=== PATIENT | female | born 1945 | race Caucasian/White ===

== ENCOUNTER 2016-05-15 10:22 | Emergency (ER) | payer MEDICARE, BC ==
[2016-05-15 10:54] VITALS: RESP 18
--- NOTE | 2016-05-15 11:27 | ED ---
Fall HPI - General Chief Complaint: Fall Stated Complaint: fall, back and head pain, shadi Time Seen by Provider: 05/15/16 10:33 Source: patient Mode of arrival: ambulatory - History of Present Illness Initial Comments: This patient is a 70-year-old woman who complains of having a fall on Tuesday. The patient states that she had gone to check her mail, and did not notice there was some ice on the snow. She slipped and fell. Patient struck the right side of her ribs and also the right side of her head. The patient states that now she is having some pain in the right side of her chest when she moves, or when she sneezes or coughs. She states that the head pain had resolved other is a bit of a bruise over that area. Patient did not have any loss of consciousness. She is not take any blood thinning medication. She has not had any neurologic symptoms. No neck pain. 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 Witnessed: no Place Fall Occurred: home Loss of Consciousness: none Prolonged Down Time?: no Symptoms Prior to Fall: none Location: chest Severity: moderate Quality: aching Context: tripped/slipped - Related Data Home Medications Medication Instructions Recorded Confirmed Levothyroxine Sodium [Synthroid] 50 mcg PO DAILY 05/15/16 05/15/16 Levothyroxine Sodium [Synthroid] 88 mcg PO DAILY 05/15/16 05/15/16 Ramipril [Altace] 2.5 mg PO BID 05/15/16 05/15/16 amLODIPine [Norvasc] 5 mg PO HS 05/15/16 05/15/16 Allergies Allergy/AdvReac Type Severity Reaction Status Date / Time No Known Allergies Allergy Verified 05/15/16 10:45 Review of Systems ROS Statement: Those systems with pertinent positive or pertinent negative responses have been documented in the HPI. ROS Other: All systems not noted in ROS Statement are negative. Constitutional: Denies: fever, chills Respiratory: Denies: cough, dyspnea, hemoptysis Cardiovascular: Reports: as per HPI, chest pain. Denies: palpitations, syncope Gastrointestinal: Denies: abdominal pain, vomiting, diarrhea Genitourinary: Denies: dysuria Musculoskeletal: Denies: back pain Skin: Denies: rash Neurological: Denies: headache, weakness, numbness Past Medical History Past Medical History: Hypertension, Thyroid Disorder History of Any Multi-Drug Resistant Organisms: None Reported Additional Past Surgical History / Comment(s): Lasix Past Psychological History: No Psychological Hx Reported Smoking Status: Never smoker Past Alcohol Use History: Rare Past Drug Use History: None Reported General Exam Limitations: no limitations General appearance: alert, in no apparent distress Head exam: Present: atraumatic, other (Right parietal hematoma. There is only a trace of tenderness. There is no bony tenderness. No palpable deformity.) Eye exam: Present: normal appearance, PERRL, EOMI. Absent: scleral icterus, conjunctival injection, nystagmus ENT exam: Present: normal oropharynx, TM's normal bilaterally Neck exam: Present: normal inspection, full ROM. Absent: tenderness, meningismus Respiratory exam: Present: normal lung sounds bilaterally, chest wall tenderness. Absent: respiratory distress, wheezes, rales, rhonchi, stridor Cardiovascular Exam: Present: regular rate, normal rhythm, normal heart sounds. Absent: systolic murmur, diastolic murmur, rubs, gallop GI/Abdominal exam: Present: soft. Absent: distended, tenderness, guarding, rebound, rigid, mass Extremities exam: Present: normal inspection, normal capillary refill. Absent: pedal edema, calf tenderness Back exam: Present: normal inspection. Absent: CVA tenderness (R), CVA tenderness (L) Neurological exam: Present: alert, oriented X3, CN II-XII intact, normal gait. Absent: motor sensory deficit Skin exam: Present: warm, dry, intact, normal color. Absent: rash Course Vital Signs 05/15/16 05/15/16 10:39 10:51 Temperature 96.9 F L Pulse Rate 60 Respiratory 20 18 Rate Blood Pressure 154/67 O2 Sat by Pulse 98 Oximetry Disposition Clinical Impression: Fall, Chest wall injury Disposition: HOME SELF-CARE Condition: Good Instructions: Fall Prevention for Older Adults (ED), Rib Fracture (ED) Referrals: George Campoverde MD [Primary Care Provider] - 1-2 days
--- NOTE | 2016-05-15 11:34 | XR ---
EXAMINATION TYPE: XR ribs RT w pa chest xray DATE OF EXAM: 05/15/2016 11:16 AM CLINICAL HISTORY: Fall injury 3 days ago with chest and right-sided rib pain. TECHNIQUE: Single frontal view of the chest is obtained. A frontal and oblique images of the right-si ded ribs are acquired. COMPARISON: None FINDINGS: There is no focal air space opacity, pleural effusion, or pneumothorax seen. Underlying em physematous change is not excluded. The cardiac silhouette size is within normal limits. The osseou s structures are demineralized which is noted to lower radiographic sensitivity. Dedicated images of the right-sided ribs show no acute displaced fracture. Overlying soft tissue is u nremarkable. IMPRESSION: 1. No acute cardiopulmonary process. 2. No acute displaced right-sided rib fractures are clearly seen. Slightly suboptimal evaluation due to demineralization is noted.
[2016-05-15 12:21] VITALS: BP 127/58; PULSE 53; TEMP 97
== END 2016-05-15 12:25 | disposition home or self-care (01) ==
LOC: EC 10:22
DX: S29.9XXA Unspecified injury of thorax, initial encounter (principal); W00.0XXA Fall on same level due to ice and snow, initial encounter; E07.9 Disorder of thyroid, unspecified; I10 Essential (primary) hypertension; Z79.899 Other long term (current) drug therapy
CPT/HCPCS: 99283

== ENCOUNTER → 2019-01-02 | Outpatient (CLI) | payer MEDICARE, BC ==
--- NOTE | 2019-01-03 12:00 | ECHOF ---
Referral Reason:R01.1 Cardiac murmur, unspecified MEASUREMENTS -------- HEIGHT: 167.6 cm WEIGHT: 57.2 kg BP: 137/65 RVIDd: 3.1 cm (< 3.3) IVSd: 1.1 cm (0.6 - 1.1) LVIDd: 4.0 cm (3.9 - 5.3) LVPWd: 1.0 cm (0.6 - 1.1) IVSs: 1.4 cm LVIDs: 2.7 cm LVPWs: 1.4 cm LA Diam: 2.9 cm (2.7 - 3.8) LAESV Index (A-L): 28.83 ml/m Ao Diam: 3.0 cm (2.0 - 3.7) AV Cusp: 1.5 cm (1.5 - 2.6) MV EXCURSION: 16.139 mm (> 18.000) MV EF SLOPE: 69 mm/s (70 - 150) EPSS: 0.2 cm MV E Liban: 0.70 m/s MV DecT: 293 ms MV A Liban: 0.73 m/s MV E/A Ratio: 0.95 RAP: 5.00 mmHg RVSP: 23.72 mmHg TAPSE: 20.82 mm FINDINGS -------- Resting bradycardia (HR<60bpm). This was a technically good study. The left ventricular size is normal. There is borderline concentric left ventricular hypertrophy. Overall left ventricular systolic function is normal with, an EF between 55 - 60 %. The diastolic filling pattern is normal for the age of the patient 13.76. The right ventricle is normal in size. LA is midly dilated 29-33ml/m2. The right atrium is normal in size. Interatrial and interventricular septum intact. There is mild aortic valve sclerosis. The mitral valve is normal. Mild tricuspid regurgitation present. Right ventricular systolic pressure is normal at < 35 mmHg. Trace/mild (physiologic) pulmonic regurgitation. The aortic root size is normal. Normal inferior vena cava with normal inspiratory collapse consistent with estimated right atrial pre ssure of 5 mmHg. There is no pericardial effusion. CONCLUSIONS -------- 1. Resting bradycardia (HR<60bpm). 2. This was a technically good study. 3. The left ventricular size is normal. 4. There is borderline concentric left ventricular hypertrophy. 5. Overall left ventricular systolic function is normal with, an EF between 55 - 60 %. 6. The diastolic filling pattern is normal for the age of the patient 13.76 7. The right ventricle is normal in size. 8. LA is midly dilated 29-33ml/m2. 9. The right atrium is normal in size. 10. Interatrial and interventricular septum intact. 11. There is mild aortic valve sclerosis. 12. The mitral valve is normal. 13. Mild tricuspid regurgitation present. 14. Right ventricular systolic pressure is normal at < 35 mmHg. 15. Trace/mild (physiologic) pulmonic regurgitation. 16. The aortic root size is normal. 17. Normal inferior vena cava with normal inspiratory collapse consistent with estimated right atrial pressure of 5 mmHg. 18. There is no pericardial effusion. BUGGY LOADER: Nayely Raza RDCS
== END | disposition home or self-care (01) ==
LOC: RADECHMAIN 11:13
PROVIDERS: ATTEND Family Medicine
DX: I07.1 Rheumatic tricuspid insufficiency (principal); I35.8 Other nonrheumatic aortic valve disorders; I37.1 Nonrheumatic pulmonary valve insufficiency; R00.1 Bradycardia, unspecified
CPT/HCPCS: 93306

== ENCOUNTER → 2019-01-10 | Outpatient (CLI) | payer MEDICARE, BC ==
[~2019-01-10] MED LIST: DENOSUMAB 60 MG/ML 1 ML SYRINGE SQ ONE
[2019-01-10 09:59] VITALS: BP 159/69; PULSE 58; RESP 16; TEMP 97.7
== END ==
LOC: PROCWHC3 09:29
PROVIDERS: ATTEND Family Medicine
DX: M81.0 Age-related osteoporosis without current pathological fracture (principal)
CPT/HCPCS: 96372; J0897

== ENCOUNTER → 2019-07-13 | Outpatient (CLI) | payer BC, MEDICARE ==
[~2019-07-13] MED LIST changes: +DENOSUMAB 60 MG/ML 1 ML SYRINGE SQ NR; -DENOSUMAB 60 MG/ML 1 ML SYRINGE SQ ONE
[2019-07-13 09:59] VITALS: BP 157/70; PULSE 56; RESP 16; TEMP 97.7
== END | disposition home or self-care (01) ==
LOC: PROCWHC3 09:24
PROVIDERS: ATTEND Family Medicine
DX: M81.0 Age-related osteoporosis without current pathological fracture (principal)
CPT/HCPCS: 96372; J0897

== ENCOUNTER → 2020-01-16 | Outpatient (CLI) | payer MEDICARE ==
[2020-01-16 09:04] VITALS: BP 155/64; PULSE 66; RESP 15; TEMP 98.1
== END | disposition home or self-care (01) ==
LOC: PROCWHC3 08:47
PROVIDERS: ATTEND Family Medicine
DX: M81.0 Age-related osteoporosis without current pathological fracture (principal)
CPT/HCPCS: 96372; J0897

== ENCOUNTER → 2021-07-30 | Outpatient (CLI) | payer MEDICARE ==
[2021-07-30 08:55] VITALS: BP 158/78; PULSE 65; RESP 16; TEMP 97.6
== END ==
LOC: PROCWHC3 08:44
PROVIDERS: ATTEND Family Medicine
DX: M81.0 Age-related osteoporosis without current pathological fracture (principal)
CPT/HCPCS: 96372; J0897

== ENCOUNTER → 2021-12-10 | Outpatient (CLI) | payer MEDICARE ==
--- NOTE | 2021-12-10 11:18 | FL ---
EXAMINATION TYPE: FL barium swallow DATE OF EXAM: 12/10/2021 CLINICAL HISTORY: Dysphasia. Food getting intermittently stuck in cervical esophagus for months. TECHNIQUE: A double contrast esophagram is performed utilizing air and barium. A total of 19 second s of fluoroscopic time was utilized during procedure and 53 images obtained COMPARISON: None FINDINGS: The esophagus shows normal motility and emptying into the stomach. No proximal diverticulum . No obstructing mass identified. No evidence of fixed hiatal hernia or stricture noted. No significa nt gastroesophageal reflux was seen during real time performance of this study. IMPRESSION: No significant abnormality is seen to account for patient's symptoms of dysphagia.
--- NOTE | 2021-12-10 11:19 | US ---
EXAMINATION TYPE: US carotid duplex BILAT DATE OF EXAM: 12/10/2021 COMPARISON: NONE CLINICAL HISTORY: I65.23 OCCLUSION AND STENOSIS R13.12 DYSPHAGIA. TECHNIQUE: Carotid duplex ultrasound examination. Indirect Doppler criteria was utilized. 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 No elevated velocities or significant stenosis. Moderate peripheral shadowing hyperechoic plaque right carotid bulb and mild to moderate peripheral p laque left carotid bulb. Velocity measurements and ratios remain within normal limits. IMPRESSION: No hemodynamically significant stenosis in either internal carotid artery. Criteria for Assigning % of Stenosis / Diameter reduction (Estimation based on the indirect measurements of the internal carotid artery velocities (ICA PSV). 1. Normal (no stenosis)=ICA PSV < 125 cm/s: ratio < 2.0: ICA EDV<40 cm/s. 2. Less than 50% stenosis=ICA PSV < 125 cm/s: ratio < 2.0: ICA EDV<40 cm/s. 3. 50 to 69% stenosis=ICA PSV of 125 to 230 cm/s: ration 2.0 ? 4.0: ICA EDV 40-100 cm/s. 4. Greater than 70% stenosis to near occlusion= ICA PSV > 230 cm/s: ratio > 4.0: ICA EDV > 100 cm/s. 5. Near occlusion= ICA PSV velocities may be low or undetectable: variable ratio and ICA EDV. 6. Total occlusion=unable to detect flow.
--- NOTE | 2021-12-14 15:37 | MM ---
Reason for Exam: Screening (asymptomatic). Last mammogram was performed 17 year(s) and 4 month(s) ago. Patient History: Menarche at age 11. First Full-Term at age 24. Postmenopausal. Risk Values: Aria 5 year model risk: 1.9%. NCI Lifetime model risk: 3.7%. Prior Study Comparison: 04/10/1999 Left Special View Mammogram, [facility]. 04/11/2001 Bilateral Special View Mammogram, [facility]. 08/12/2004 Bilateral Screening Mammogram, [facility]. Tissue Density: The breast tissue is extremely dense which could obscure a lesion on mammography. Findings: Analyzed By CAD. No suspicious groups of microcalcifications, spiculated or lobular masses, architectural distortion or other secondary signs of malignancy are mammographically apparent. Overall Assessment: Benign, BI-RAD 2 Management: Screening Mammogram of both breasts in 1 year. A negative mammogram report should not preclude additional follow up of suspicious palpable abnormalities. Patient should continue monthly self breast exam. A clinical breast exam by your physician is recommended on an annual basis and results should be correlated with mammographic findings. Electronically signed and approved by: Arley Wells DO
== END | disposition home or self-care (01) ==
LOC: RADUSWWP 09:53
PROVIDERS: ATTEND Internal Medicine
DX: Z12.31 Encounter for screening mammogram for malignant neoplasm of breast (principal); R13.10 Dysphagia, unspecified; I65.23 Occlusion and stenosis of bilateral carotid arteries; Z78.0 Asymptomatic menopausal state
CPT/HCPCS: 74220; 77063; 77067; 93880

== ENCOUNTER → 2021-12-11 | Outpatient (CLI) | payer MEDICARE ==
[2021-12-11 11:20] LABS: ALT 16 U/L (8-44); AST 24 U/L (13-35); African American GFR (CKD) 96.9 (60.0-200.0); Albumin 4.3 g/dL (3.8-4.9); Albumin/Globulin Ratio 2.26 (1.60-3.17); Alkaline Phosphatase 47 U/L (41-126); Blood Urea Nitrogen 14.7 mg/dL (9.0-27.0); Calcium 8.5 mg/dL (8.7-10.3); Carbon Dioxide 27.6 mmol/L (20.0-27.5); Chloride 102 mmol/L (96-109); Globulin 1.9 g/dL (1.6-3.3); Glucose 86 mg/dL (70-110); Magnesium 2.2 mg/dL (1.5-2.4); Non-African American GFR(CKD) 83.6 (60.0-200.0); Sodium 139 mmol/L (135-145); Total Protein 6.2 g/dL (6.2-8.2)
[2021-12-11 11:50] LABS: Protein, Total 6.5 g/dL (6.2-8.2)
[2021-12-11 12:09] LABS: C Reactive Protein <0.30 mg/dL (0.00-0.80); Ferritin 89.5 ng/mL (10.0-291.0); Iron 65 ug/dL (50-170); Total Iron Binding Capacity 297 ug/dL (228-460)
[2021-12-11 13:20] LABS: Chol/HDL Ratio 2.39 Ratio; LDL Cholesterol,Calculated 99.4 mg/dL (0.0-131.0); Rheumatoid Factor, Qnt <10 IU/mL (0-15); VLDL Calculation 18.16 mg/dL (5.00-40.00)
[2021-12-11 14:49] LABS: Basophils # (A) 0.07 X 10*3/uL (0.00-0.10); Basophils % (A) 1.7 %; Eosinophils # (A) 0.14 X 10*3/uL (0.04-0.35); Eosinophils % (A) 3.4 %; HCT 38.5 % (37.2-46.3); HGB 12.9 g/dL (12.0-15.0); Immature Grans, Automated 0.2 %; Lymphocytes # (A) 1.19 X 10*3/uL (0.90-5.00); MCH 29.9 pg (27.0-32.0); MCHC 33.5 g/dL (32.0-37.0); MCV 89.1 fL (80.0-97.0); Mean Platelet Volume 10.7 fL (9.5-12.2); Monocytes # (A) 0.47 X 10*3/uL (0.20-1.00); Monocytes % (A) 11.5 %; NRBC Per 100 WBC 0 /100 WBCS (0.0-0.0); Neutrophils # (A) 2.22 X 10*3/uL (1.80-7.70); Neutrophils % (A) 54.2 %; Platelet Count 242 X 10*3/uL (140-440); RBC 4.32 X 10*6/uL (4.10-5.20); RDW 12.5 % (11.5-14.5)
[2021-12-11 15:07] LABS: Erythrocyte Sedimentation Rate 1 mm/Hr (0-30)
[2021-12-11 16:06] LABS: Appearance,Urine Clear (Clear); Bilirubin,Urine Negative (Negative); Blood,Urine Large (Negative); Color,Urine Yellow (Yellow); Ketones,Urine Negative (Negative); Nitrite,Urine Negative (Negative); Specific Gravity,Urine 1.012 (1.001-1.030)
[2021-12-11 16:18] LABS: Bacteria,Urine None Seen /HPF (None Seen)
== END | disposition home or self-care (01) ==
LOC: LABWHC1 06:52
PROVIDERS: ATTEND Internal Medicine
DX: I10 Essential (primary) hypertension (principal); E03.9 Hypothyroidism, unspecified; E78.2 Mixed hyperlipidemia; E55.9 Vitamin D deficiency, unspecified; G62.9 Polyneuropathy, unspecified; M81.0 Age-related osteoporosis without current pathological fracture
CPT/HCPCS: 36415; 80053; 80061; 81001; 82306; 82523; 82595; 82607; 82728; 83036; 83540; 83550; 83735; 83883; 84165; 84439; 84443; 85025; 85652; 86038; 86140; 86431; 86800

== ENCOUNTER → 2022-02-02 | Outpatient (CLI) | payer MEDICARE ==
[2022-02-02 08:58] VITALS: RESP 16; TEMP 98
[2022-02-02 09:01] VITALS: BP 137/62; PULSE 57
== END ==
LOC: PROCWHC3 08:45
PROVIDERS: ATTEND Internal Medicine
DX: M81.0 Age-related osteoporosis without current pathological fracture (principal)
CPT/HCPCS: 96372; J0897

== ENCOUNTER → 2022-09-01 | Outpatient (CLI) | payer MEDICARE ==
--- NOTE | 2022-09-01 12:33 | XR ---
EXAMINATION TYPE: XR shoulder complete BILAT DATE OF EXAM: 09/01/2022 12:25 PM INDICATION: Patient age:Female; 77 years old; Reason for study: M25.519; COMPARISON: None TECHNIQUE: Both shoulders are examined in frontal, external rotation, and scapular Y-view projections . FINDINGS: No evidence of acute osseous pathology, joint dislocation, or soft tissue swelling. Mild bilateral AC joint arthropathy with joint space narrowing. The remaining portions of the visualized chest are unr emarkable. IMPRESSION: 1. No acute osseous pathology. 2. Mild bilateral AC joint arthropathy.
== END | disposition home or self-care (01) ==
LOC: RADXRMAIN 11:58
PROVIDERS: ATTEND Internal Medicine
DX: M19.012 Primary osteoarthritis, left shoulder (principal); M19.011 Primary osteoarthritis, right shoulder

== ENCOUNTER → 2022-09-22 | Outpatient (CLI) | payer MEDICARE ==
[2022-09-22 11:47] VITALS: BP 153/63; PULSE 54; RESP 16; TEMP 97.8
== END ==
LOC: PROCWHC3 11:31
PROVIDERS: ATTEND Internal Medicine
DX: M81.0 Age-related osteoporosis without current pathological fracture (principal)
CPT/HCPCS: 96372; J0897

== ENCOUNTER → 2022-12-07 | Outpatient (CLI) | payer MEDICARE ==
--- NOTE | 2022-12-07 18:45 | BD ---
EXAMINATION TYPE: Axial Bone Density DATE OF EXAM: 12/07/2022 CLINICAL HISTORY: 77 years old Female. ICD-10 CODE: M81.0 AGE-RELATED OSTEOPOROSIS Height: 66 Weight: 122.7 FRAX RISK QUESTIONS: Alcohol (3 or more units per day): no Family History (Parent hip fracture): no Glucocorticoids (More than 3mos): no (Ex: prednisone, prednisolone, methylprednisolone, dexamethasone, and hydrocortisone). History of Fracture in Adulthood: no Secondary Osteoporosis: 1. Type 1 Diabetes: no 2. Hyperthyroidism: no 3. Menopause before 45: no 4. Malnutrition: no 5. Chronic liver disease: no Rheumatoid Arthritis: no Current Tobacco Use: no RISK FACTORS HISTORY OF: Surgery to Spine/Hip(right/left)/Wrist (right/left): no Family History of Osteoporosis: no Active: yes Diet low in dairy products/other sources of calcium: no Postmenopausal woman: yes Lost more than 2 inches in height since high school: no MEDICATIONS: Thyroid Medications: synthroid How Lon years Osteoporosis Medications: prolia How Lon Additional Medications: Additional History: EXAM MEASUREMENTS: Bone mineral densitometry was performed using the [employer] System. Bone mineral density as measured about the Lumbar spine is: ----- L1-L4(G/cm2): 1.039 T Score Values are as follows: ----- L1: -2.4 ----- L2: -1.6 ----- L3: -0.9 ----- L4: -0.1 ----- L1-L4: -1.2 Z Score Values are as follows: ----- L1: -0.3 ----- L2: 0.5 ----- L3: 1.2 ----- L4: 2.0 ----- L1-L4: 0.9 Bone mineral density : baseline Bone mineral density about the R hip (g/cm2): 0.803 Bone mineral density about the L hip (g/cm2): 0.760 T Score values are as follows: -----R Neck: -2.2 -----L Neck: -2.6 -----R Total: -1.6 -----L Total: -2.0 Z Score values are as follows: -----R Neck: 0.1 -----L Neck: -0.4 -----R Total: 0.5 -----L Total: 0.2 Bone mineral density : baseline FRAX%s: The graph provided illustrates a 17.1% chance for a major osteoporotic fx and a 6.5% chance f or the hips probability for fx in 10 years time. IMPRESSION: Osteoporosis (T Score less than -2.5). There is increased fracture risk and therapy is usually indicated based on age. Re-Screen 1-2 years. NOTE: T-SCORE=SD OF THE YOUNG ADULT MEAN.
== END | disposition home or self-care (01) ==
LOC: RADBDWWP 12:58
PROVIDERS: ATTEND Internal Medicine
DX: M81.0 Age-related osteoporosis without current pathological fracture (principal); M85.89 Other specified disorders of bone density and structure, multiple sites
CPT/HCPCS: 77080

== ENCOUNTER 2022-12-08 06:06 | Day surgery (SDC) | payer MEDICARE, OTHER ==
[2022-12-07 10:04] VITALS: BMI 19.7
[~2022-12-08 06:06] MED LIST changes: -DENOSUMAB 60 MG/ML 1 ML SYRINGE SQ NR; +LACTATED RINGERS 1,000 ML IV SCH; +LIDOCAINE 1% (10MG/ML) FOR IV START INTRADERMA PRN; +MOXIFLOXACIN HCL 0.5% DROPS 3 ML BTL OP PRN; +TETRACAINE 0.5% OPHTH (PF) DROPS 4 ML BTL OP PRN; +TIMOLOL 0.5% OPHTH DROPS 5 ML BTL OP PRN
[2022-12-08 06:53] VITALS: TEMP 97
[2022-12-08] MEDS: CYCLOPENTOLATE 1% OPHTH SOLN 2 ML BTL OP PRN ×3 (06:59→07:11)
[2022-12-08] MEDS: PHENYLEPHRINE 2.5% OPHTH DRP 2ML OP PRN ×3 (07:02→07:14)
[2022-12-08] MEDS ORDERED: ONDANSETRON 4 MG/2 ML VIAL ONE (07:07)
[2022-12-08] MEDS ORDERED: ONDANSETRON 4 MG/2 ML VIAL IVP ONE (07:10)
[2022-12-08] MEDS ORDERED: GLYCOPYRROLATE 0.2 MG/ML 2 ML VIAL ONE (07:30)
[2022-12-08] MEDS ORDERED: MIDAZOLAM 2 MG/2 ML VIAL ONE (07:30)
[2022-12-08] MEDS ORDERED: fentaNYL (PF) 50 MCG/ML 2 ML AMP ONE (07:30)
[2022-12-08] MEDS ORDERED: EPINEPHrine (PF) 0.3 ML in BALANCED SALT IRRIG SOLN COMB2 500 ML IRRIGATION ONE (07:44)
[2022-12-08] MEDS ORDERED: BALANCED SALT IRRIG SOLN COMB2 15 ML IRRIG.SOLN INTRAOCULA ONE (07:45)
[2022-12-08] MEDS ORDERED: DUOVISC KIT (GREEN BOX) INTRAOCULA ONE (07:45)
[2022-12-08] MEDS ORDERED: LIDOCAINE 1% (PF) 10MG/ML VIAL MISCELLANE ONE (07:45)
--- NOTE | 2022-12-08 08:12 | P.OP ---
Date of Procedure: 12/08/22 Preoperative Diagnosis: NS Postoperative Diagnosis: NS Procedure(s) Performed: PIOL< OS Implants: [id number] 24.50 Anesthesia: MAC Surgeon: Pastor Morse Pathology: none sent Condition: stable Disposition: same day Indications for Procedure: blurry vision Operative Findings: no complications
[2022-12-08 08:31] VITALS: BP 122/60; PULSE 63; RESP 16
--- NOTE | 2022-12-09 09:52 | OP ---
OPERATIVE REPORT DATE OF SERVICE : 12/08/2022 PREOPERATIVE DIAGNOSES:: 1. Nuclear sclerosis. 2. Cortical sclerosis. 3. Regular astigmatism. POSTOPERATIVE DIAGNOSES:: 1. Nuclear sclerosis. 2. Cortical sclerosis. 3. Regular astigmatism. OPERATION:: Phacoemulsification of cataract and intraocular lens implant of the left eye. ESTIMATED BLOOD LOSS:: None. SPECIMEN TAKEN:: None. ANESTHESIA: Topical. NARRATIVE:: After obtaining the appropriate consent, the patient was brought to the operating room where she was placed under cardiac monitoring, prepped and draped in the usual sterile manner. She was approached from her left temporal side. Using previously acquired corneal topography information, the axis of 175 degrees was identified and marked with a [employer] axis marker. At the 5 o'clock position, an MVR blade was used to create a paracentesis port. Through this opening, 1% Xylocaine MPF 50:50 mix of balanced salt solution was injected into the anterior chamber. This was followed by stabilization of the anterior chamber with Amvisc. At the 3 o'clock position, a 2.5 mm keratome was used to create a self-sealing corneal flap incision. Through this opening, a cystotome was introduced to begin a continuous tear capsulorrhexis which was then completed using the Utrata forceps. Hydrodissection and hydrodelineation of the lens were accomplished with balanced salt solution. Phacoemulsification of the lens utilizing phaco chop was accomplished in 12.41 seconds at 9.4% power. Additional Xylocaine MPF was instilled into the anterior chamber. This was followed by removal of the remaining cortical material under irrigation and aspiration as well as careful polishing of the posterior capsule in the capsule vacuum mode. Additional Amvisc was then used to stabilize the capsular bag and a Bausch [employer] Lomb [id number] 24.5 spherical equivalent posterior chamber intraocular lens was then inserted into the capsular bag without difficulty. The remaining viscoelastic was removed from in and around the intraocular lens and the lens was then oriented with respect to the corneal perez previously placed on the patient's cornea. The eye was then brought to normal intraocular pressure through the paracentesis port with balanced salt solution. She received 2 drops of 0.5% timolol followed by 2 drops of 0.5% moxifloxacin and was then lightly patched and shielded in the usual manner. There were no complications from the procedure. She tolerated the procedure well and was returned to outpatient recovery in good condition. MMBENNIE / STEPHANN: [id number] /
== END 2022-12-08 08:55 | disposition home or self-care (01) ==
LOC: OR 06:06
PROVIDERS: ATTEND Ophthalmology
DX: H25.12 Age-related nuclear cataract, left eye (principal); H52.222 Regular astigmatism, left eye; I10 Essential (primary) hypertension; E07.9 Disorder of thyroid, unspecified; E78.5 Hyperlipidemia, unspecified; Z79.899 Other long term (current) drug therapy
CPT/HCPCS: 66984; V2787; C1780; C1762; J2250; J2405; J0171; J3010; J2001

== ENCOUNTER → 2023-01-19 | Day surgery (SDC) | payer MEDICARE, OTHER ==
[~2023-01-19] MED LIST changes: +BALANCED SALT IRRIG SOLN COMB2 15 ML IRRIG.SOLN INTRAOCULA ONE; +DEXAMETHASONE SOD PHOSPHATE 4 MG/ML 1 ML VIAL IVP ONE; +EPINEPHrine (PF) 0.3 ML in BALANCED SALT IRRIG SOLN COMB2 500 ML IRRIGATION ONE; +HYALURONATE SODIUM INTRAOCULAR 1 EACH SYRINGE (12MG/ML) INTRAOCULA ONE; -LIDOCAINE 1% (10MG/ML) FOR IV START INTRADERMA PRN; +LIDOCAINE 1% (PF) 10MG/ML VIAL MISCELLANE ONE; +MIDAZOLAM 2 MG/2 ML VIAL ONE; +ONDANSETRON 4 MG/2 ML VIAL IVP ONE; +ONDANSETRON 4 MG/2 ML VIAL ONE; +fentaNYL (PF) 50 MCG/ML 2 ML AMP ONE
[2023-01-19] MEDS: CYCLOPENTOLATE 1% OPHTH SOLN 2 ML BTL OP PRN ×3 (08:03→08:15)
[2023-01-19] MEDS: PHENYLEPHRINE 2.5% OPHTH DRP 2ML OP PRN ×3 (08:06→08:18)
[2023-01-19 08:23] VITALS: TEMP 97.3
--- NOTE | 2023-01-19 10:26 | P.OP ---
Date of Procedure: 01/19/23 Preoperative Diagnosis: NS Postoperative Diagnosis: same Procedure(s) Performed: PIOL, OD Implants: [id number] 21.50 Anesthesia: MAC Surgeon: Pastor Morse Pathology: none sent Condition: stable Disposition: same day Indications for Procedure: blurry vision Operative Findings: no complications
[2023-01-19 10:43] VITALS: RESP 12
[2023-01-19 11:03] VITALS: BP 126/69; PULSE 56
--- NOTE | 2023-01-19 19:08 | OP ---
OPERATIVE REPORT DATE OF SERVICE : 01/19/2023 PREOPERATIVE DIAGNOSIS: Nuclear sclerosis, right eye. POSTOPERATIVE DIAGNOSIS: Nuclear sclerosis, right eye. OPERATION: Phacoemulsification of cataract and interocular lens implant, right eye. ESTIMATED BLOOD LOSS: Zero. SPECIMEN TAKEN: None. NARRATIVE: After obtaining the appropriate consent, the patient was brought to the operating room where the patient was placed under cardiac monitoring and prepped and draped in the usual sterile manner. At the 11 o'clock position, a 15-degree super sharp blade was used to create a paracentesis followed by instillation of 1% Xylocaine MPF 50:50 mix with BSS into the anterior chamber. This was followed by Amvisc viscoelastic to stabilize the anterior chamber. At the 9 o'clock position a self-sealing corneal flap incision was created using 2.8 mm lux keratome. A cystotome was used to initiate a continuous tear capsulorrhexis which was completed with the Utrata forceps. A Binkhorst cannula was used to hydrodissect the lens nucleus followed by hydrodelineation. Phacoemulsification of the lens was performed utilizing phaco chop in 15.53 seconds at 10.5% power. The remaining cortical material was removed using the irrigation aspiration mode followed by additional 1% Xylocaine MPF into the anterior chamber followed by viscoelastic to stabilize the capsular bag. A Bausch and Lomb MX60E 21.5 diopter posterior chamber lens was placed into the capsular bag without difficulty. The remaining viscoelastic material was removed from the anterior chamber with the irrigation/aspiration. Balanced salt solution was used to normalize the intraocular pressure. The incision was checked for watertight integrity. The patient then received 2 drops of 0.5% timolol followed by 2 drops Vigamox, was lightly patched and shielded in the usual manner. There were no complications from the procedure. The patient tolerated the procedure well and was returned to recovery in good condition. MMODL / IJN: [id number] /
== END ==
LOC: OR 07:28
PROVIDERS: ATTEND Ophthalmology
DX: H25.11 Age-related nuclear cataract, right eye (principal); H35.3121 Nonexudative age-related macular degeneration, left eye, early dry stage; H52.223 Regular astigmatism, bilateral; H52.13 Myopia, bilateral; E78.5 Hyperlipidemia, unspecified; E03.9 Hypothyroidism, unspecified; I10 Essential (primary) hypertension; M19.90 Unspecified osteoarthritis, unspecified site; Z79.890 Hormone replacement therapy; Z79.899 Other long term (current) drug therapy; Z96.1 Presence of intraocular lens
CPT/HCPCS: 66984; C1780; J2250; J1100; J2405; J0171; J3010; J2001

== ENCOUNTER → 2023-03-25 | Outpatient (CLI) | payer MEDICARE, OTHER ==
[~2023-03-25] MED LIST changes: -BALANCED SALT IRRIG SOLN COMB2 15 ML IRRIG.SOLN INTRAOCULA ONE; +DENOSUMAB 60 MG/ML 1 ML SYRINGE SQ NR; -DEXAMETHASONE SOD PHOSPHATE 4 MG/ML 1 ML VIAL IVP ONE; -EPINEPHrine (PF) 0.3 ML in BALANCED SALT IRRIG SOLN COMB2 500 ML IRRIGATION ONE; -HYALURONATE SODIUM INTRAOCULAR 1 EACH SYRINGE (12MG/ML) INTRAOCULA ONE; -LACTATED RINGERS 1,000 ML IV SCH; -LIDOCAINE 1% (PF) 10MG/ML VIAL MISCELLANE ONE; -MIDAZOLAM 2 MG/2 ML VIAL ONE; -MOXIFLOXACIN HCL 0.5% DROPS 3 ML BTL OP PRN; -ONDANSETRON 4 MG/2 ML VIAL IVP ONE; -ONDANSETRON 4 MG/2 ML VIAL ONE; -TETRACAINE 0.5% OPHTH (PF) DROPS 4 ML BTL OP PRN; -TIMOLOL 0.5% OPHTH DROPS 5 ML BTL OP PRN; -fentaNYL (PF) 50 MCG/ML 2 ML AMP ONE
[2023-03-25 13:34] VITALS: BP 161/64; PULSE 55; RESP 16; TEMP 97.5
== END ==
LOC: PROCWHC3 12:47
PROVIDERS: ATTEND Internal Medicine
DX: M81.0 Age-related osteoporosis without current pathological fracture (principal)
CPT/HCPCS: 96372; J0897

== ENCOUNTER → 2023-07-06 | Outpatient (CLI) | payer MEDICARE ==
[2023-07-06 09:00] LABS: African American GFR (CKD) >90 (>60 ml/min/1.73 sqM); Blood Urea Nitrogen 17 mg/dL (7-17); Non-African American GFR(CKD) 85 (>60 ml/min/1.73 sqM)
--- NOTE | 2023-07-07 07:45 | CT ---
EXAMINATION TYPE: CT urogram wo/w con DATE OF EXAM: 07/06/2023 COMPARISON: None HISTORY: hematuria CT DLP: 1491 mGycm CONTRAST: Performed and with IV Contrast, patient injected with 100 mL of Isovue 300. CT Urography was performed with unenhanced followed by enhanced images of the kidneys, ureters and ur inary bladder. Delayed images were obtained. 3d reconstruction was perfromed at a separate work sta tion. FINDINGS: KIDNEYS/BLADDER: No hydronephrosis. Nonobstructing nephrolithiasis lower pole right kidney with 2 ca lculi seen measuring 6.4 mm and 5 mm respectively. No distinct renal mass. Urinary bladder grossly un remarkable. Extrarenal pelvis noted bilaterally. LUNG BASES-: No visible nodule. No infiltrate. LIVER/GB: No calcified gallstones. No space occupying hepatic lesion. Biliary tree is of normal ca liber. PANCREAS: No inflammation. No distinct mass. SPLEEN: No splenic enlargement. No lesion seen. ADRENALS: No nodule. No thickening. BOWEL: Normal appendix. Normal bowel caliber. No inflammation. GENITAL ORGANS: Hysterectomy changes noted. LYMPH NODES: No greater than 1cm abdominal or pelvic lymph nodes are appreciated. AORTA: No significant abnormality. OSSEOUS STRUCTURES: No significant abnormality is seen. OTHER: No significant additional abnormality is seen. IMPRESSION: 1. Nonobstructive nephrolithiasis right kidney. No renal mass is detected.
== END | disposition home or self-care (01) ==
LOC: RADCTMAIN 08:20
PROVIDERS: ATTEND Internal Medicine
DX: N20.0 Calculus of kidney (principal); R31.29 Other microscopic hematuria
CPT/HCPCS: 82565; 84520; 74178; 74400; Q9967

== ENCOUNTER → 2023-07-14 | Outpatient (CLI) | payer MEDICARE ==
--- NOTE | 2023-07-14 14:32 | US ---
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 Indirect Doppler criteria was utilized. 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 no elevated velocities or ratios. No stenosis seen. IMPRESSION: 1. Mild atheromatous plaque of the carotid bifurcations bilaterally. 2. Mild less than 50% stenoses in the bilateral common and internal carotid arteries based on peak sy stolic velocities along with color and grayscale imaging. Criteria for Assigning % of Stenosis / Diameter reduction (Estimation based on the indirect measurements of the internal carotid artery velocities (ICA PSV). 1. Normal (no stenosis)=ICA PSV < 125 cm/s: ratio < 2.0: ICA EDV<40 cm/s. 2. Less than 50% stenosis=ICA PSV < 125 cm/s: ratio < 2.0: ICA EDV<40 cm/s. 3. 50 to 69% stenosis=ICA PSV of 125 to 230 cm/s: ration 2.0 ? 4.0: ICA EDV 40-100 cm/s. 4. Greater than 70% stenosis to near occlusion= ICA PSV > 230 cm/s: ratio > 4.0: ICA EDV > 100 cm/s. 5. Near occlusion= ICA PSV velocities may be low or undetectable: variable ratio and ICA EDV. 6. Total occlusion=unable to detect flow.
== END | disposition home or self-care (01) ==
LOC: RADUSWWP 12:13
PROVIDERS: ATTEND Internal Medicine
DX: I65.23 Occlusion and stenosis of bilateral carotid arteries (principal); E85.81 Light chain (AL) amyloidosis
CPT/HCPCS: 93880

== ENCOUNTER → 2023-09-27 | Outpatient (CLI) | payer MEDICARE ==
[2023-09-27 13:04] VITALS: BP 151/67; PULSE 54; RESP 15; TEMP 97.7
[2023-09-27] MEDS: DENOSUMAB 60 MG/ML 1 ML SYRINGE SQ NR (13:05)
== END ==
LOC: PROCWHC3 12:45
PROVIDERS: ATTEND Internal Medicine
DX: M81.0 Age-related osteoporosis without current pathological fracture (principal)
CPT/HCPCS: 96372; J0897

== ENCOUNTER → 2024-04-10 | Outpatient (CLI) | payer MEDICARE ==
[2024-04-10] MEDS: DENOSUMAB 60 MG/ML 1 ML SYRINGE SQ NR (11:52)
[2024-04-10 11:54] VITALS: BP 115/74; PULSE 69; RESP 16; TEMP 98.2
== END ==
LOC: PROCWHC3 11:30
PROVIDERS: ATTEND Internal Medicine
DX: M81.0 Age-related osteoporosis without current pathological fracture (principal)
CPT/HCPCS: 96372; J0897